=== PATIENT | female | born 1965 | race Caucasian/White ===

== ENCOUNTER → 2023-02-03 09:42 | Outpatient (CLI) | payer OTHER, SELFPAY ==
--- NOTE | ~2023-02-03 | US_ITS ---
Pelvic ultrasound. Clinical History: Postmenopausal bleeding Technique: Realtime transabdominal scanning of the pelvis was performed. Color flow Doppler and Doppl er spectral analysis were performed. Findings: The uterus is anteverted. The endometrial stripe has a thickness of 4 mm. No focal mass is identified. The right ovary is not visualized. No significant right ovarian or adnexal mass is seen. The left ovary measures 1.8 x 2.1 x 1.4 cm. No significant left ovarian or adnexal mass is seen. There is no evidence of free fluid in the cul de sac. Impression: Uterus and left ovary are unremarkable. Right ovary not seen. Reviewed, dictated and finalized at location . Impression: Uterus and left ovary are unremarkable. Right ovary not seen.
== END ==
PROVIDERS: PCP Nurse Practitioner; Visit Provider Nurse Practitioner
DX: N95.0 Postmenopausal bleeding (principal)
CPT/HCPCS: 76856